=== PATIENT | male | born 1955 | race Hispanic/Latino ===

== ENCOUNTER 2025-05-10 18:56 | Emergency (ER) | payer OTHER, SELFPAY ==
[2025-05-10] VITALS (9 sets, daily range): BP systolic 90–136; BP diastolic 56–115
--- NOTE | 2025-05-10 19:23 | ED.GENMED ---
History of Present Illness
General
Chief Complaint: Chest Pain
Source: patient
Exam Limitations: none
Time Seen by Provider: 05/10/25 19:06
Nursing documentation reviewed up to this point in time: agreed with
History of Present Illness
History of Present Illness:
Patient is a 69-year-old male with past history ND, renal insufficiency, type II DM who presents to the emergency department from long term for evaluation of chest pain. Patient is somewhat of a difficult historian. Patient states that he has had
approximately 5 years of similar chest pain. He states that over the past 2 days he has noticed an intermittent pain in his mid chest worse when laying flat with mild shortness of breath. However, he states symptoms intensified acutely around 5:30
PM. Patient states that he was taken into custody this morning and mentioned the chest pain to the nurse upon intake.
He denies any radiation of pain into his shoulder or jaw. He denies any associated dizziness/lightheadedness, or diaphoresis. No clear exertional or pleuritic component to symptoms. Patient denies any recent fever or viral symptoms. No nasal
congestion or sore throat.
Patient does suffer from chronic neck and back discomfort from prior surgeries.
Review of Systems
Review of Systems
Allergies reviewed?: Yes
All Other Systems: ROS reviewed and negative except as documented in HPI and ROS
Phy Exam
Physical Exam
Physical Exam:
Vitals: Hypertensive on arrival, improved by my assessment.
General: Patient is tearful
Skin: Warm and dry, no rashes or lesions
Head: Normocephalic, atraumatic
Eyes: Sclera nonicteric.
Throat: Protecting airway
Neck: Normal ROM, no cervical spine tenderness, no meningismus
Cardiac: Regular rate and rhythm, no murmurs. No reproducible chest wall tenderness. 2+ palpable radial pulses bilaterally
Pulm: Normal respiratory effort. Lungs clear bilaterally
.
Abdomen: No abdominal tenderness.
Extremities: No evidence of cyanosis or edema. Palpable DP pulses bilaterally
Neuro: AAOx3. Grossly intact.
Psychiatric: Normal affect.
Scores
Heart Score for Chest Pain Patients
STEMI patient?: Not applicable
Course
Orders/Labs/Results
Orders:
Orders
05/10/25 19:04
Electrocardiogram (*1) Urgent
Reason for Study: Chest Pain
EKG- Treatment ONCE
05/10/25 19:22
Acetaminophen [Tylenol] 1,000 mg PO NOW STA
05/10/25 19:23
Comprehensive Metabolic Panel Urgent
D-Dimer Urgent
05/10/25 19:26
Complete Blood Count/With Diff Urgent
Troponin I Urgent
05/10/25 20:05
CR Chest - 2 Views Urgent
Comment:
Reason For Exam: chest pain
05/10/25 22:30
Electrocardiogram (*1) Urgent
Reason for Study: Chest Pain
EKG- Treatment ONCE
05/10/25 22:53
Troponin I Urgent
Abnormal Lab Results
05/10/25 05/10/25
19:23 19:26
RDW 15.4 H %
(11.5-14.5)
Absolute Monos (auto) 0.9 H 10^3/uL
(0.1-0.6)
Monocytes % 10.0 H %
(1.7-9.3)
Carbon Dioxide 21 L mmol/L
(22-30)
BUN 21 H mg/dl
(9-20)
Glucose 115 H mg/dl
(70-99)
Total Protein 5.9 L g/dl
(6.3-8.2)
05/10/25 19:26
05/10/25 19:23
Vital Signs
Initial and Last Documented VS:
Initial Vital Signs
Temp Pulse Resp BP Pulse Ox
98.5 F 88 18 136/115 100
05/10/25 19:05 05/10/25 19:05 05/10/25 19:05 05/10/25 19:05 05/10/25 19:05
Last Documented Vital Signs
Temp Pulse Resp BP Pulse Ox
98.5 F 93 12 105/68 99
05/10/25 19:05 05/10/25 23:55 05/10/25 23:45 05/10/25 23:57 05/10/25 21:15
MDM/Problems Addressed
Differential Diagnosis Includes:
Not limited to: Muscle strain/spasm, GERD, pericarditis, myocarditis, pneumothorax, pneumonia, acute coronary syndrome, pulmonary embolism, etc.
MDM/Problems Addressed:
69-year-old male presenting from long term with atypical chest pain. Reports acute on chronic chest pain x 5 years, worse over the past few hours, associated with shortness of breath. Hypertensive on arrival with otherwise stable vital signs. Physical
exam as above.
Initial EKG obtained on arrival shows normal sinus rhythm without evidence of acute ischemia or arrhythmia.
Will check labs, trend cardiac enzymes. Given shortness of breath, will obtain d-dimer and chest x-ray.
Update: labs unremarkable. Initial troponin undetectable as well as d-dimer. Chest x-ray without acute findings.
I have reassessed patient multiple times since arrival and he has been sleeping in room.
Will repeat your troponin/EKG to assess for acute cardiac process.
Update: repeat troponin undetectable with unchanged EKG. Extensive work up in ED has been negative. He has remained hemodynamically stable. Feel safe for discharge back to long term with follow up with his mangle tender cloth as scheduleed. Return precautions
discussed.
Chronic conditions affecting care:
CAD, diabetes mellitus
Acute Exacerbation and/or Progression of Chronic Illness:
N/A
*Radiology
Radiology exam reviewed: preliminary read by ED provider (Chest x-ray read by me-no acute abnormalities) and radiology read reviewed
*Pulse Oximetry
SaO2: 100
Oxygen Mode of Delivery: Room air
Patient hypoxic: no
*EKG
Interpreted by ED Provider?: Yes
EKG Intrepretation Date: 05/10/25
Interpretation: abnormal
Heart Rate: 83
Rate: normal
Rhythm: sinus
[place]: normal axis
Interval: long QT
QRS Pattern: normal QRS
Ischemia: no ischemia
*[employer] Interpretation
Rate: normal
Interpretation: normal
Heart Rate: 78
Rhythm: sinus
*Critical Care Note
Total Time (30-74mins, 75-104mins- exclusive of procedures): Not Applicable
ED Attending Note
-
Portions of this chart may have been created with voice recognition software.� Occasional wrong word or��sound alike� substitutions may have occurred due to the inherent limitations of voice recognition software.
Discharge Plan
Departure
Patient Disposition: Home (Routine Discharge)
Date of Disposition: 05/11/25
Time of Disposition: 00:06
Patient with high blood pressure during this ER visit?: Yes
Condition: Good
Covid-19: Not Applicable
Discharge Problem:
Chest pain
Instructions: Chest pain (DC), BLOOD PRESSURE
Referrals:
Your mangle tender cloth [Other] - Keep scheduled appt
[facility] [Family Provider, General]
Activity Restrictions/Additional Instructions:
RETURN TO THE EMERGENCY DEPARTMENT WITH ANY FEVERS, CHEST PAIN, SHORTNESS OF BREATH/DIFFICULTY BREATHING, SEVERE BACK PAIN, NUMBNESS/TINGLING OR WEAKNESS IN EXTREMITIES, WORSENING IN CURRENT SYMPTOMS, OR ANY OTHER CONCERNS
- As discussed�your lab work including cardiac enzymes showed no acute abnormalities today in the emergency department. Your chest x-ray showed no acute findings.
- Please continue to take your medications as prescribed
- Follow-up with your mangle tender cloth as scheduled this week for further evaluation/management
Monitor your symptoms closely and return to the emergency department with any acute worsening/new symptoms or any other concerns
Patient is cleared for incarceration
Interventions
Interventions:
*General Assessment Last Done: 05/10/25 23:41
*Neglect/Abuse Screening Last Done: 05/10/25 23:41
*ED COVID-19 Vaccine History Last Done: 05/10/25 23:41
*ED Influenza Vaccine History Last Done: 05/10/25 23:41
[facility] Fall Risk Assessment Tool Last Done: 05/11/25 00:43
*Nursing Disposition Last Done: 05/11/25 00:20
ED- Cardiac Assessment Last Done: 05/10/25 19:19
Discharge Date and Time
Discharge Date/Time: 05/11/25 00:20
Print Language: [id number]
[2025-05-10 19:39] LABS: Hematocrit 46.9 % (39.0-52.0); Hemoglobin 16.3 g/dL (13.0-18.0); Mean Corp Hgb Conc. 34.8 g/dL (33.0-37.0); Mean Corpuscular Volume 84.1 fL (80.0-94.0); Nucleated Red Blood Cells % 0 % (-); Platelet Count 206 10^3/uL (130-400); Red Cell Dist. Width 15.4 % (11.5-14.5)
[2025-05-10 19:48] LABS: D-Dimer < 0.27 ug/mlFEU (0.00-0.50)
[2025-05-10 19:57] LABS: ALT (SGPT) 31 U/L (0-50); AST (SGOT) 34 U/L (17-59); Albumin 3.7 g/dl (3.5-5.0); Alkaline Phosphatase 56 U/L (38-126); Blood Urea Nitrogen 21 mg/dl (9-20); Calcium 9.1 mg/dl (8.4-10.2); Carbon Dioxide 21 mmol/L (22-30); Chloride 105 mmol/L (98-107); Glucose 115 mg/dl (70-99); Potassium 3.6 mmol/L (3.5-5.1); Sodium 135 mmol/L (135-145); Total Protein 5.9 g/dl (6.3-8.2); eGFR > 60.00
[2025-05-10 20:07] LABS: Troponin I 0.014 ng/ml
[2025-05-10] MEDS: TYLENOL PO (20:11)
[2025-05-10] MEDS: TYLENOL 1000 MG PO (20:44)
[2025-05-10 23:25] LABS: Troponin I 0.013 ng/ml
== END 2025-05-11 00:20 | disposition home or self-care (01) ==
LOC: EMR 18:56
PROVIDERS: Physician Assistant; EMERGENCY PHYSICIAN Emergency Medicine
DX: R07.89 Other chest pain (principal); E11.9 Type 2 diabetes mellitus without complications; I25.2 Old myocardial infarction; I25.10 Atherosclerotic heart disease of native coronary artery without angina pectoris
CPT/HCPCS: 99285; 71046; 80053; 84484; 85025; 85379; 93005